=== PATIENT | male | born 1990 | race American Indian/Alaskan Native ===

== ENCOUNTER 2017-05-03 12:20 | Emergency (ER) | payer OTHER ==
[2017-05-03 12:38] VITALS: BP 123/60
[2017-05-03] MEDS ORDERED: MOTRIN PO ONE (15:16)
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
== END 2017-05-03 16:18 | disposition home or self-care (01) ==
LOC: ED 12:20
DX: S13.4XXA Sprain of ligaments of cervical spine, initial encounter (principal); F17.200 Nicotine dependence, unspecified, uncomplicated; V49.49XA Driver injured in collision with other motor vehicles in traffic accident, initial encounter; Y93.89 Activity, other specified; Y92.89 Other specified places as the place of occurrence of the external cause; Y99.8 Other external cause status